=== PATIENT | male | born 1995 | race Hispanic/Latino ===

== ENCOUNTER 2022-01-08 14:08 | Outpatient (CLI) | payer OTHER | END 2022-01-08 14:09 | disposition home or self-care (01) | LOC: BICRAD 14:08 | PROVIDERS: ATTEND Nurse Practitioner Family | DX: M25.511 Pain in right shoulder (principal) ==

== ENCOUNTER 2022-03-31 20:58 | Emergency (ER) ==
[2022-03-31] MEDS ORDERED: Ketorolac Tromethamine 30 MG/ML VIAL ONE (21:34)
== END 2022-03-31 22:05 | disposition home or self-care (01) ==
LOC: ERS 20:58
DX: M54.50 Low back pain, unspecified (principal); W21.9XXA Striking against or struck by unspecified sports equipment, initial encounter; Y93.66 Activity, soccer
CPT/HCPCS: 96372; 99282; J1885